=== PATIENT | male | born 1970 | race Caucasian/White ===

== ENCOUNTER 2018-07-30 17:36 | Emergency (ER) | payer OTHER | END 2018-07-30 19:00 | disposition home or self-care (01) | LOC: M ED 17:36 | DX: S69.92XA Unspecified injury of left wrist, hand and finger(s), initial encounter (principal); W23.0XXA Caught, crushed, jammed, or pinched between moving objects, initial encounter; Y92.59 Other trade areas as the place of occurrence of the external cause; Y99.0 Civilian activity done for income or pay; F43.10 Post-traumatic stress disorder, unspecified; Z79.899 Other long term (current) drug therapy; F17.210 Nicotine dependence, cigarettes, uncomplicated | CPT/HCPCS: 73130 ==

== ENCOUNTER → 2019-10-19 | Outpatient (REF) ==
[~2019-10-19] MED LIST: PARO20TA3 PO
== END ==
LOC: M LAB LCGH 14:04
PROVIDERS: ATTEND Surgery
DX: Z12.11 Encounter for screening for malignant neoplasm of colon (principal); K63.5 Polyp of colon

== ENCOUNTER 2023-09-09 16:34 | Emergency (ER) | payer OTHER ==
[~2023-09-09] VITALS: Ht 170.2 cm; Wt 72.7 kg
[2023-09-09 16:34] VITALS: BP 117/82; TEMP 99; O2SAT 96
[2023-09-09] MEDS ORDERED: LISI10TA22 PO (17:39)
[2023-09-09] MEDS ORDERED: PANT40TA29 (17:40)
[2023-09-09] MEDS ORDERED: ATOR40TA75 (17:40)
[2023-09-09] MEDS ORDERED: LISI20TA33 (17:40)
[2023-09-09] MEDS ORDERED: NORCO, ANEXSIA 5/325MG TABLET (HYDROcodone/ACETAMINOPHEN) PO ONE (19:45)
[2023-09-09] MEDS ORDERED: HYDR-4571 PO (21:24)
[2023-09-09] MEDS ORDERED: NORCO 5/325MG TABLET (HOME DOSE PACK) PO ONE (21:25)
== END 2023-09-09 21:35 | disposition home or self-care (01) ==
LOC: M ED 16:34
DX: S86.111A Strain of other muscle(s) and tendon(s) of posterior muscle group at lower leg level, right leg, initial encounter (principal); Y93.01 Activity, walking, marching and hiking; Y99.0 Civilian activity done for income or pay; F17.200 Nicotine dependence, unspecified, uncomplicated; Z79.899 Other long term (current) drug therapy; Z88.8 Allergy status to other drugs, medicaments and biological substances

== ENCOUNTER → 2024-01-22 | Outpatient (CLI) | payer OTHER ==
[~2024-01-22] MED LIST changes: +ATOR40TA75; +HYDR-4571 PO; +LISI10TA22 PO; +LISI20TA33; +PANT40TA29
== END ==
LOC: M RAD 15:07
PROVIDERS: ATTEND Nurse Practitioner Primary Care
DX: Z12.2 Encounter for screening for malignant neoplasm of respiratory organs (principal); Z87.891 Personal history of nicotine dependence

== ENCOUNTER 2025-11-11 03:05 | Emergency (ER) | payer OTHER ==
[~2025-11-11] VITALS: Ht 170.2 cm; Wt 74.2 kg
[2025-11-11 03:48] LABS: BASO # 0.1 10^3/uL (0.0-0.2); BASO % 0.6 % (0.0-1.0); EOS # 0.1 10^3/uL (0.0-0.5); EOS % 0.4 % (0.0-3.0); LYMPH # 1.1 10^3/uL (1.5-5.0); LYMPH % 8.4 % (24.0-44.0); MONO # 0.6 10^3/uL (0.0-0.8); MONO % 4.9 % (2.0-8.0); NEUTROPHILS # 11.0 10^3/uL (1.5-8.5); NEUTROPHILS % 85.5 % (36.0-66.0); PLATELET COUNT, AUTOMATED 281 10^3/uL (150-450)
[2025-11-11 04:08] LABS: AMORPHOUS SEDIMENT SMALL (NEGATIVE); APPEARANCE, URINE CLOUDY (CLEAR); BACTERIA, URINE AUTO NEGATIVE (NEGATIVE); BILIRUBIN, URINE AUTO NEGATIVE (NEGATIVE); BLOOD, URINE BLOOD 3+ (NEGATIVE); GLUCOSE, URINE (UA) AUTO NEGATIVE (NEGATIVE); KETONE, URINE AUTO NEGATIVE (NEGATIVE); LEUKOCYTE ESTERASE, URINE AUTO NEGATIVE (NEGATIVE); NITRITE, URINE AUTO NEGATIVE (NEGATIVE); PROTEIN, URINE AUTO 1+ mg/dL (NEGATIVE); RBC, URINE AUTO TNTC /HPF (0-3); SPECIFIC GRAVITY URINE AUTO 1.013 (1.002-1.035); SQUAMOUS EPITHELIAL CELL UR AU 0 /HPF (0-6); UROBILINOGEN, URINE AUTO 0.2 mg/dL (0.0-2.0); WBC, URINE AUTO 2 /HPF (0-3)
[2025-11-11 04:08] LABS: ALT/SGPT 34.0 U/L (7.0-40); AST/SGOT 27.0 U/L (<34); CALCIUM LEVEL 9.5 MG/DL (8.5-10.1); CARBON DIOXIDE LEVEL 24.0 MMOL/L (20-31); CHLORIDE LEVEL 107.0 MMOL/L (98-107); CREATININE FOR GFR 1.45 MG/DL (0.70-1.30); GLOMERULAR FILTRATION RATE 56.2 (>56); POTASSIUM SERUM 4.2 MMOL/L (3.5-5.1); SODIUM LEVEL 141.0 MMOL/L (136-145)
[2025-11-11] MEDS: KETOROLAC 30 MG/ML 1 ML VIAL IV ONE (06:05)
[2025-11-11] MEDS: NS (Normal Saline) 0.9% 1,000 ML IV ONE (06:05)
[2025-11-11] MEDS: ONDANSETRON 4MG/2ML VIAL IV ONE (06:06)
[2025-11-11] MEDS ORDERED: KETO-204 PO (06:47)
[2025-11-11] MEDS ORDERED: ONDA-282 PO (06:47)
[2025-11-11] MEDS ORDERED: TAMS1CAP17 PO (06:47)
[2025-11-11] MEDS: TAMSULOSIN 0.4 MG CAP PO ONE (06:58)
[2025-11-11 07:30] VITALS: BP 129/82; TEMP 97.2; O2SAT 94
== END 2025-11-11 07:38 | disposition home or self-care (01) ==
LOC: M ED 03:05
DX: N20.1 Calculus of ureter (principal); N13.30 Unspecified hydronephrosis; K57.30 Diverticulosis of large intestine without perforation or abscess without bleeding; I10 Essential (primary) hypertension; K21.9 Gastro-esophageal reflux disease without esophagitis; E78.5 Hyperlipidemia, unspecified; F32.A Depression, unspecified; F43.10 Post-traumatic stress disorder, unspecified; Z79.899 Other long term (current) drug therapy; Z88.8 Allergy status to other drugs, medicaments and biological substances
CPT/HCPCS: 74176; 80048; 80076; 81001; 83690; 85025; 96361; 96374; 96375; 99284; J1885; J2405

== ENCOUNTER → 2025-11-14 | Outpatient (CLI) | payer OTHER ==
[~2025-11-14] MED LIST changes: +KETO-204 PO; +ONDA-282 PO; +TAMS1CAP17 PO
== END ==
LOC: M RAD 15:02
PROVIDERS: ATTEND Internal Medicine
DX: Z12.2 Encounter for screening for malignant neoplasm of respiratory organs (principal); Z87.891 Personal history of nicotine dependence